=== PATIENT | male | born 1935 | race Caucasian/White ===

== ENCOUNTER 2017-07-24 21:01 | Emergency (ER) | payer MEDICARE ==
[~2017-07-24] VITALS: Ht 177.8 cm; Wt 60.0 kg
[2017-07-24 21:07] VITALS: BP 145/84
[2017-07-24] MEDS ORDERED: LIDOCAINE GEL 2%, 5ML ONE ×2 (21:23→21:45)
== END 2017-07-25 00:04 | disposition home or self-care (01) ==
LOC: ED 23:58
DX: R33.9 Retention of urine, unspecified (principal); N40.0 Benign prostatic hyperplasia without lower urinary tract symptoms; I48.91 Unspecified atrial fibrillation; Z88.0 Allergy status to penicillin
CPT/HCPCS: 51702; 99284